=== PATIENT | female | born 1960 | race Caucasian/White ===

== ENCOUNTER 2019-04-26 14:31 | Inpatient (IN) | payer BC ==
[2019-04-26] MEDS ORDERED: SODIUM CHLORIDE 0.9% 2,000 ML IV ONE (14:52)
[2019-04-26] MEDS ORDERED: ASPIRIN 81 MG PO STA (14:52)
--- NOTE | 2019-04-26 15:00 | ED ---
General Adult HPI - General Chief complaint: Fever Stated complaint: JOSE,fever Time Seen by Provider: 04/26/19 14:47 Source: patient, family Mode of arrival: ambulatory Limitations: no limitations - History of Present Illness Initial comments: Patient is a 58-year-old homeless female who presents with a chief complaint of fever and cough. This been going on since Saturday. The patient cannot identify any inciting incident. She denies any sick contacts. She is accompanied to the emergency department by her who states that they have been staying at several different locations. The patient admits to cough that is productive of yellow sputum, she admits to exertional shortness of breath. She is a history of hypertension but denies any other medical history. The patient denies any aggravating or alleviating factors. She has not tried any medications, she has not sought medical treatment for this issue yet. - Related Data Home Medications Medication Instructions Recorded Confirmed Acetaminophen/Chlorpheniramine 2 tab PO Q46H PRN 04/26/19 04/26/19 [Coricidin Hbp Cold & Flu Tab] Carvedilol [Coreg] 3.125 mg PO BID 04/26/19 04/26/19 Allergies Allergy/AdvReac Type Severity Reaction Status Date / Time No Known Allergies Allergy Verified 04/26/19 14:44 Review of Systems ROS Statement: Those systems with pertinent positive or pertinent negative responses have been documented in the HPI. ROS Other: All systems not noted in ROS Statement are negative. Constitutional: Reports: fever Respiratory: Reports: cough, dyspnea Past Medical History Past Medical History: Hypertension History of Any Multi-Drug Resistant Organisms: None Reported Past Surgical History: No Surgical Hx Reported Past Psychological History: No Psychological Hx Reported Smoking Status: Current every day smoker Past Alcohol Use History: None Reported Past Drug Use History: None Reported General Exam Limitations: no limitations General appearance: alert, in no apparent distress Head exam: Present: atraumatic, normocephalic Eye exam: Present: normal appearance ENT exam: Present: normal exam Neck exam: Present: normal inspection Respiratory exam: Present: normal lung sounds bilaterally. Absent: respiratory distress, wheezes Cardiovascular Exam: Present: normal rhythm, tachycardia GI/Abdominal exam: Present: soft. Absent: distended, tenderness Rectal exam: Present: deferred Extremities exam: Present: normal inspection Back exam: Present: normal inspection Neurological exam: Present: alert, oriented X3 Psychiatric exam: Present: normal affect, normal mood Skin exam: Present: warm, dry, intact Course Vital Signs 04/26/19 04/26/19 04/26/19 14:42 14:52 15:59 Temperature 101.8 F H Pulse Rate 112 H Respiratory 20 20 20 Rate Blood Pressure 217/91 O2 Sat by Pulse 93 L Oximetry 04/26/19 04/26/19 16:00 17:00 Temperature 100.1 F H Pulse Rate 105 H 96 Respiratory 20 16 Rate Blood Pressure 189/108 O2 Sat by Pulse 97 Oximetry Medical Decision Making - Medical Decision Making Patient presents with a chief complaint of cough and shortness of breath. She is febrile on arrival, vital signs otherwise show tachycardia are stable. Patient is in no acute distress. Patient evaluated with basic labs including lactic acid, chest x-ray, and venous blood gas. Patient was given 2 L of IV fluid and aspirin. Laboratory evaluation of this patient shows an elevated white blood cell count with neutrophilia. Chest x-ray shows scarring versus pneumonia, given patient's clinical presentation favor pneumonia. Patient started on Rocephin and azithromycin for community-acquired pneumonia. Patient will be admitted for IV antibiotics given her borderline hypoxia, and meeting sepsis on arrival. We will hold on additional fluid boluses at this time as patient has already hypertensive. Patient and her are agreeable with the care plan. Case discussed with Dr. Dubon who accepts admission. - Lab Data Result diagrams: 04/26/19 15:31 04/26/19 15:31 Lab Results 04/26/19 04/26/19 04/26/19 Range/Units 15:31 15:31 15:31 WBC 17.0 H (3.8-10.6) k/uL RBC 4.63 (3.80-5.40) m/uL Hgb 13.8 (11.4-16.0) gm/dL Hct 42.2 (34.0-46.0) % MCV 91.3 (80.0-100.0) fL MCH 29.8 (25.0-35.0) pg MCHC 32.6 (31.0-37.0) g/dL RDW 12.9 (11.5-15.5) % Plt Count 273 (150-450) k/uL Neutrophils % 85 % Lymphocytes % 8 % Monocytes % 5 % Eosinophils % 1 % Basophils % 0 % Neutrophils # 14.5 H (1.3-7.7) k/uL Lymphocytes # 1.3 (1.0-4.8) k/uL Monocytes # 0.8 (0-1.0) k/uL Eosinophils # 0.2 (0-0.7) k/uL Basophils # 0.1 (0-0.2) k/uL VBG pH (7.31-7.41) VBG pCO2 (37-51) mmHg VBG HCO3 (24-28) mmol/L Sodium 137 (137-145) mmol/L Potassium 3.9 (3.5-5.1) mmol/L Chloride 102 (98-107) mmol/L Carbon Dioxide 25 (22-30) mmol/L Anion Gap 10 mmol/L BUN 17 (7-17) mg/dL Creatinine 0.74 (0.52-1.04) mg/dL Est GFR (CKD-EPI)AfAm >90 (>60 ml/min/1.73 sqM) Est GFR (CKD-EPI)NonAf >90 (>60 ml/min/1.73 sqM) Glucose 115 H (74-99) mg/dL Plasma Lactic Acid Grzegorz 1.2 (0.7-2.0) mmol/L Calcium 9.0 (8.4-10.2) mg/dL Troponin I (0.000-0.034) ng/mL NT-Pro-B Natriuret Pep pg/mL 04/26/19 04/26/19 04/26/19 Range/Units 15:31 15:31 15:45 WBC (3.8-10.6) k/uL RBC (3.80-5.40) m/uL Hgb (11.4-16.0) gm/dL Hct (34.0-46.0) % MCV (80.0-100.0) fL MCH (25.0-35.0) pg MCHC (31.0-37.0) g/dL RDW (11.5-15.5) % Plt Count (150-450) k/uL Neutrophils % % Lymphocytes % % Monocytes % % Eosinophils % % Basophils % % Neutrophils # (1.3-7.7) k/uL Lymphocytes # (1.0-4.8) k/uL Monocytes # (0-1.0) k/uL Eosinophils # (0-0.7) k/uL Basophils # (0-0.2) k/uL VBG pH 7.44 H (7.31-7.41) VBG pCO2 36 L (37-51) mmHg VBG HCO3 24 (24-28) mmol/L Sodium (137-145) mmol/L Potassium (3.5-5.1) mmol/L Chloride (98-107) mmol/L Carbon Dioxide (22-30) mmol/L Anion Gap mmol/L BUN (7-17) mg/dL Creatinine (0.52-1.04) mg/dL Est GFR (CKD-EPI)AfAm (>60 ml/min/1.73 sqM) Est GFR (CKD-EPI)NonAf (>60 ml/min/1.73 sqM) Glucose (74-99) mg/dL Plasma Lactic Acid Grzegorz (0.7-2.0) mmol/L Calcium (8.4-10.2) mg/dL Troponin I <0.012 (0.000-0.034) ng/mL NT-Pro-B Natriuret Pep 2500 pg/mL Disposition Clinical Impression: HCAP (healthcare-associated pneumonia), Hypoxia, Fever, Sepsis, Hypertension Disposition: ADMITTED IP TO THIS HOSP Condition: Fair Referrals: Boo Glover MD [Primary Care Provider] - 1-2 days Decision to Admit Reason: Admit from EC - Out of Hospital Transfer - Req. Specs Out of Hospital Transfer - Requested Specifics: Telemetry Unit
[2019-04-26 15:50] LABS: Basophils # (A) 0.1 k/uL (0-0.2); Basophils % (A) 0 %; Eosinophils # (A) 0.2 k/uL (0-0.7); Eosinophils % (A) 1 %; HCT 42.2 % (34.0-46.0); HGB 13.8 gm/dL (11.4-16.0); Lymphocytes # (A) 1.3 k/uL (1.0-4.8); Lymphocytes % (A) 8 %; MCH 29.8 pg (25.0-35.0); MCHC 32.6 g/dL (31.0-37.0); MCV 91.3 fL (80.0-100.0); Mean Platelet Volume 7.3; Monocytes # (A) 0.8 k/uL (0-1.0); Monocytes % (A) 5 %; Neutrophils # (A) 14.5 k/uL (1.3-7.7); Neutrophils % (A) 85 %; Platelet Count 273 k/uL (150-450); RBC 4.63 m/uL (3.80-5.40); RDW 12.9 % (11.5-15.5)
[2019-04-26] MEDS ORDERED: CARVEDILOL 3.125 MG TAB PO STA (15:53)
[2019-04-26 15:54] LABS: VBG PH 7.44 (7.31-7.41)
[2019-04-26 16:06] LABS: African American GFR (CKD) >90 (>60 ml/min/1.73 sqM); Anion Gap 10 mmol/L; Blood Urea Nitrogen 17 mg/dL (7-17); Carbon Dioxide 25 mmol/L (22-30); Chloride 102 mmol/L (98-107); Glucose 115 mg/dL (74-99); Potassium 3.9 mmol/L (3.5-5.1); Sodium 137 mmol/L (137-145)
--- NOTE | 2019-04-26 16:33 | XR ---
EXAMINATION TYPE: XR chest 2V DATE OF EXAM: 04/26/2019 COMPARISON: NONE HISTORY: Cough and fever TECHNIQUE: Frontal and lateral views of the chest are obtained. FINDINGS: Heart and mediastinum are normal. There is mild interstitial density right upper lobe. The re is no heart failure. There is no pleural effusion. There is osteopenia and slight anterior wedging of mid thoracic vertebra. There is minimal pleural thickening and pulmonary density at the right maría elena g apex. IMPRESSION: Mild scarring right upper lobe. Normal heart. Acute pneumonia not entirely excluded.
[2019-04-26] MEDS ORDERED: AZITHROMYCIN 500 MG in SODIUM CHLORIDE 0.9% 250 ML IVPB STA (16:39)
[2019-04-26] MEDS ORDERED: diphenhydrAMINE 50 MG CAP PO PRN (17:35)
[2019-04-26] MEDS ORDERED: HYDROcodone/APAP 5-325MG 1 EACH TAB PO PRN (17:36)
[2019-04-26] MEDS ORDERED: ALPRAZolam 0.25 MG TAB PO PRN (17:36)
[2019-04-26] MEDS ORDERED: HYDROmorphone 0.5 MG/0.5 ML SYRINGE IVP PRN (17:36)
[2019-04-26] MEDS ORDERED: ACETAMINOPHEN TAB 500 MG TAB PO PRN (17:36)
[2019-04-26 18:04] LABS: Amorphous Sediment,Urine Rare /hpf; Appearance,Urine Clear (Clear); Bilirubin,Urine Negative (Negative); Blood,Urine Moderate (Negative); Color,Urine Yellow; Glucose,Urine (UA) Negative (Negative); Hyaline Casts,Urine 1 /lpf (0-2); Ketones,Urine 2+ (Negative); Leukocyte Esterase,Urine Trace (Negative); Mucus,Urine Rare /hpf; Nitrite,Urine Negative (Negative); Protein,Urine 1+ (Negative); RBC,Urine 7 /hpf (0-5); Specific Gravity,Urine 1.018 (1.001-1.035); Squamous Epithelial Cell,Urine 5 /hpf (0-4); Urobilinogen,Urine <2.0 mg/dL (<2.0); WBC,Urine 3 /hpf (0-5)
[2019-04-26] MEDS: hydrALAZINE HCL 20 MG/ML 1 ML VIAL IVP PRN (18:23)
[2019-04-26] MEDS ORDERED: IPRATROPIUM-ALBUTEROL 3 ML NEB INHALATION SCH (20:00)
[2019-04-26] MEDS: SYMBICORT 160-4.5 MCG INHALER INHALATION SCH (20:05)
[2019-04-26] MEDS ORDERED: hydrALAZINE HCL 20 MG/ML 1 ML VIAL IVP PRN (20:30)
[2019-04-26] MEDS ORDERED: cloNIDine HCL 0.1 MG TAB PO PRN (20:30)
[2019-04-26] MEDS: cloNIDine HCL 0.1 MG TAB PO SCH (20:49)
[2019-04-26] MEDS: CARVEDILOL 3.125 MG TAB PO SCH (20:49)
[2019-04-26] MEDS: methylPREDNISolone SOD SUCCI 125 MG/2 ML VIAL IV SCH (20:51)
[2019-04-26] MEDS: NICOTINE 14MG/24HR PATCH TRANSDERM SCH (21:00)
[2019-04-26] MEDS: INSULIN ASPART (NovoLOG) 100 UNIT/ML VIAL SQ SCH (21:08)
[2019-04-26 21:09] LABS: Glucose,Whole Blood 104 mg/dL (75-99)
[2019-04-26] MEDS ORDERED: IPRATROPIUM-ALBUTEROL 3 ML NEB INHALATION PRN (21:42)
--- NOTE | 2019-04-26 22:02 | HP ---
HISTORY AND PHYSICAL DATE OF SERVICE: 04/26/2019 CHIEF COMPLAINT: Shortness of breath and cough. HISTORY OF PRESENT ILLNESS: This 58-year-old woman with a past medical history of multiple medical problems including history of hypertension, history of smoking being followed Dr. Tony Glover in the outpatient setting apparently homeless at this time. The patient complained of shortness of breath, cough, sputum for the last several days. Patient came to [facility] and was admitted for further evaluation and treatment. The white count is elevated to 17. Pneumonia, right lower pneumonia suspected. PAST MEDICAL HISTORY: History of hypertension, history of nicotine dependence. MEDICATIONS: Prior to admission include: 1. Coreg 3.125 mg p.o. b.i.d. ALLERGIES: None. FAMILY HISTORY: No history of any heart disease or strokes in family. SOCIAL HISTORY: History of smoking on ongoing basis. REVIEW OF SYSTEMS: ENT: No diminished vision. No diminished hearing. CARDIOVASCULAR system: As mentioned earlier. RESPIRATIONS: As mentioned earlier. GI no nausea or vomiting. no dysuria or hematuria. CENTRAL NERVOUS SYSTEM: No numbness or weakness. ALLERGY/IMMUNOLOGY: No asthma or hayfever. MUSCULOSKELETAL: As mentioned earlier. HEMATOLOGY/ONCOLOGY: No history of anemia. ENDOCRINE: No history of diabetes or hypothyroidism. CONSTITUTIONAL: As mentioned earlier. DERMATOLOGY: Negative. RHEUMATOLOGY: Negative. PSYCHIATRY: As mentioned earlier. PHYSICAL EXAMINATION: Alert and oriented x3. Pulse is 96, blood pressure 198/101, respirations 16, temperature 100.1, pulse ox 98% on room air. HEENT: Conjunctivae normal. NECK: No jugular venous distention. CARDIOVASCULAR: S1, S2 muffled. RESPIRATORY: Breath sounds diminished in the bases. Bilateral scattered rhonchi and crackles, right more than on the left. ABDOMEN: Soft, nontender. No mass palpable. LEGS: No edema. No swelling. NERVOUS SYSTEM: Higher functions as mentioned earlier. Moves all four limbs. No focal motor deficits. LYMPHATICS: No lymph nodes palpable in the neck, axillae or groin. SKIN: No ulcers, no rashes and no bleeding. JOINTS: No active deforming arthropathy. LABS: At this time shows WBC 17, hemoglobin 13.8. ABGs noted. ASSESSMENT: 1. Chronic obstructive pulmonary disease acute exacerbation with acute purulent tracheobronchitis as well as right lung bronchopneumonia with fever, increased WBC. 2. History of continued ongoing nicotine dependence. 3. Hypertension. RECOMMENDATIONS AND DISCUSSION: In this 58-year-old woman who presented with multiple medical problems, we will monitor the patient closely, continue the current medications, management and symptomatic treatment. We will initiate the empiric antibiotics and bronchodilators, steroids. Smoking cessation has been advised. Prognosis guarded because of multiple complex medical issues. Further recommendations to follow. A copy of dictation being forwarded to Tony Glover who is the primary care physician. MMNAVYA / MICHELLEN: [id number] / MTDCarlos
[2019-04-27] MEDS: methylPREDNISolone SOD SUCCI 125 MG/2 ML VIAL IV SCH ×5 (00:04→23:26)
[2019-04-27 06:44] LABS: Glucose,Whole Blood 136 mg/dL (75-99)
[2019-04-27] MEDS: INSULIN ASPART (NovoLOG) 100 UNIT/ML VIAL SQ SCH ×4 (07:22→20:35)
[2019-04-27] MEDS: PANTOPRAZOLE 40 MG TABLET PO SCH (07:22)
[2019-04-27] MEDS: MULTIVITAMINS, THERA 1 EACH TAB PO SCH (07:46)
[2019-04-27] MEDS: cloNIDine HCL 0.1 MG TAB PO SCH ×3 (07:46→20:39)
[2019-04-27] MEDS: CARVEDILOL 3.125 MG TAB PO SCH ×2 (07:46→20:35)
[2019-04-27] MEDS: NICOTINE 14MG/24HR PATCH TRANSDERM SCH (07:47)
[2019-04-27] MEDS: SYMBICORT 160-4.5 MCG INHALER INHALATION SCH ×2 (09:07→20:43)
[2019-04-27] MEDS: IPRATROPIUM-ALBUTEROL 3 ML NEB INHALATION SCH ×3 (09:07→20:43)
[2019-04-27 11:21] LABS: Glucose,Whole Blood 151 mg/dL (75-99)
[2019-04-27] MEDS: AZITHROMYCIN 500 MG TAB PO SCH (12:19)
[2019-04-27 12:58] LABS: Basophils % (A) 0 %; Eosinophils % (A) 0 %; HCT 38.2 % (34.0-46.0); HGB 12.3 gm/dL (11.4-16.0); Lymphocytes # (A) 0.9 k/uL (1.0-4.8); Lymphocytes % (A) 7 %; MCH 29.6 pg (25.0-35.0); MCHC 32.2 g/dL (31.0-37.0); Mean Platelet Volume 7.8; Monocytes # (A) 0.2 k/uL (0-1.0); Monocytes % (A) 1 %; Neutrophils # (A) 11.4 k/uL (1.3-7.7); Neutrophils % (A) 91 %; Platelet Count 274 k/uL (150-450); RBC 4.15 m/uL (3.80-5.40); RDW 13.4 % (11.5-15.5); WBC 12.5 k/uL (3.8-10.6)
[2019-04-27 13:26] LABS: African American GFR (CKD) >90 (>60 ml/min/1.73 sqM); Anion Gap 8 mmol/L; Blood Urea Nitrogen 19 mg/dL (7-17); Calcium 8.5 mg/dL (8.4-10.2); Carbon Dioxide 24 mmol/L (22-30); Chloride 107 mmol/L (98-107); Glucose 133 mg/dL (74-99); Potassium 4.1 mmol/L (3.5-5.1); Sodium 139 mmol/L (137-145)
--- NOTE | 2019-04-27 15:56 | P.CNPUL ---
History of Present Illness Consult date: 04/27/19 Requesting physician: Seth Dubon Reason for consult: dyspnea, cough Chief complaint: Dyspnea, cough, fever History of present illness: This is a 58-year-old female patient of Dr. Boo Glover with past medical history of chronic and ongoing nicotine dependence, patient carries 35 years of smoking, less than a pack a day, hypertension. Patient presents with 2 day history of increased shortness of breath, cough, ingestion, phlegm production, and fever. Denies any sick contacts, she thought her shortness of breath with was initially exacerbated by hot humid weather. Her dyspnea became worse, and she developed a fever, she is producing some yellow sputum. Does not follow with a lung specialist on a regular basis, she is not on any inhalers at home, oxygen, chest x-ray was completed showing mild scarring in the right upper lobe, there is possibility of tracheobronchitis and bronchopneumonia. On admission white blood cell count was 17.0, hemoglobin was 13.8, electrolytes and profile were within normal limits, troponins negative 3, proBNP was 2500, urinalysis showed 2+ ketones, 1+ protein, trace leuk trase, WBCs were 3, RBCs was 7, no clear evidence of infection. Patient is quite wheezy, but she is on room air, with a pulse ox of 92%, denies any acute distress, she has been started on empiric antibiotics in the form of azithromycin and Rocephin, IV steroids, nebulized bronchodilators. Review of Systems All systems: negative Constitutional: Denies chills, Denies fever Eyes: denies blurred vision, denies pain Ears, nose, mouth and throat: Denies headache, Denies sore throat Cardiovascular: Denies chest pain, Denies shortness of breath Respiratory: Reports cough with sputum, Reports dyspnea, Reports respiratory infections, Denies cough Gastrointestinal: Denies abdominal pain, Denies diarrhea, Denies nausea, Denies vomiting Genitourinary: Denies dysuria, Denies hematuria Musculoskeletal: Denies myalgias Integumentary: Denies pruritus, Denies rash Neurological: Denies numbness, Denies weakness Psychiatric: Denies anxiety, Denies depression Endocrine: Denies fatigue, Denies weight change Past Medical History Past Medical History: Hypertension Additional Past Medical History / Comment(s): Pneumonia History of Any Multi-Drug Resistant Organisms: None Reported Past Surgical History: No Surgical Hx Reported Past Anesthesia/Blood Transfusion Reactions: No Reported Reaction Past Psychological History: No Psychological Hx Reported Smoking Status: Current every day smoker Past Alcohol Use History: None Reported Past Drug Use History: None Reported - Past Family History Mother Family Medical History: No Reported History Medications and Allergies Home Medications Medication Instructions Recorded Confirmed Type Acetaminophen/Chlorpheniramine 2 tab PO Q46H PRN 04/26/19 04/26/19 History [Coricidin Hbp Cold & Flu Tab] Carvedilol [Coreg] 3.125 mg PO BID 04/26/19 04/26/19 History Allergies Allergy/AdvReac Type Severity Reaction Status Date / Time No Known Allergies Allergy Verified 04/26/19 14:44 Physical Exam Vitals: Vital Signs Temp Pulse Pulse Resp BP BP Pulse Ox 04/27/19 14:39 98.4 F 93 16 150/73 92 L 04/27/19 13:50 74 04/27/19 13:38 74 04/27/19 10:30 76 149/77 04/27/19 09:19 76 04/27/19 09:07 75 98 04/27/19 07:35 16 04/27/19 07:00 98.4 F 84 16 188/93 97 04/27/19 04:35 18 04/27/19 02:24 98.3 F 80 17 146/76 97 04/27/19 00:30 20 04/26/19 21:22 99.5 F 119 H 20 120/76 98 04/26/19 21:16 94 24 171/83 97 04/26/19 20:22 98 04/26/19 20:21 106 H 04/26/19 20:20 28 H 04/26/19 20:17 116 H 20 232/100 99 04/26/19 20:08 98.6 F 111 H 18 229/107 97 04/26/19 20:06 106 H 04/26/19 18:56 102 H 18 201/72 98 04/26/19 18:31 100.0 F H 98 16 212/92 97 04/26/19 17:00 100.1 F H 96 16 189/108 97 04/26/19 16:00 105 H 20 04/26/19 15:59 20 Intake and Output 04/27/19 04/27/19 04/27/19 06:59 14:59 22:59 Intake Total 1090 Balance 1090 Intake: Intake, IV Titration 50 Amount cefTRIAXone 1 gm In 50 Sodium Chloride 0.9% 50 ml @ 100 mls/hr IVPB Q24HR [facility] Rx#:[id number] Oral 1040 Other: Voiding Method Toilet # Voids 2 GENERAL EXAM: Alert, pleasant, 58-year-old female, speaks poor Danish, comfortable in no apparent distress. HEAD: Normocephalic/atraumatic. EYES: Normal reaction of pupils, equal size. Conjunctiva pink, sclera white. NOSE: Clear with pink turbinates. THROAT: No erythema or exudates. NECK: No masses, no JVD, no thyroid enlargement, no adenopathy. CHEST: No chest wall deformity. Symmetrical expansion. LUNGS: Equal air entry with diffuse wheezes CVS: Regular rate and rhythm, normal S1 and S2, no gallops, no murmurs, no rubs ABDOMEN: Soft, nontender. No hepatosplenomegaly, normal bowel sounds, no guarding or rigidity. EXTREMITIES: No clubbing, no edema, no cyanosis, 2+ pulses and upper and lower extremities. MUSCULOSKELETAL: Muscle strength and tone normal. SPINE: No scoliosis or deformity SKIN: No rashes CENTRAL NERVOUS SYSTEM: Alert and oriented -3. No focal deficits, tone is normal in all 4 extremities. PSYCHIATRIC: Alert and oriented -3. Appropriate affect. Intact judgment and insight. Results - Laboratory Findings CBC and BMP: 04/27/19 11:50 04/27/19 11:50 Abnormal lab findings: Abnormal Labs 04/26/19 04/26/19 04/26/19 15:31 15:31 15:45 WBC 17.0 H Neutrophils # 14.5 H Lymphocytes # VBG pH 7.44 H VBG pCO2 36 L BUN Glucose 115 H POC Glucose (mg/dL) Urine Protein Urine Ketones Urine Blood Ur Leukocyte Esterase Urine RBC Ur Squamous Epith Cells Amorphous Sediment Urine Mucus 04/26/19 04/26/19 04/27/19 17:49 21:05 06:43 WBC Neutrophils # Lymphocytes # VBG pH VBG pCO2 BUN Glucose POC Glucose (mg/dL) 104 H 136 H Urine Protein 1+ H Urine Ketones 2+ H Urine Blood Moderate H Ur Leukocyte Esterase Trace H Urine RBC 7 H Ur Squamous Epith Cells 5 H Amorphous Sediment Rare H Urine Mucus Rare H 04/27/19 04/27/19 04/27/19 11:20 11:50 11:50 WBC 12.5 H Neutrophils # 11.4 H Lymphocytes # 0.9 L VBG pH VBG pCO2 BUN 19 H Glucose 133 H POC Glucose (mg/dL) 151 H Urine Protein Urine Ketones Urine Blood Ur Leukocyte Esterase Urine RBC Ur Squamous Epith Cells Amorphous Sediment Urine Mucus - Diagnostic Findings Chest x-ray: report reviewed, image reviewed Assessment and Plan Plan: Assessment: #1. Dyspnea, related to acute exacerbation of COPD with tracheobronchitis, and possibility of bronchopneumonia is not entirely excluded, although chest x-ray did not show any clearcut evidence of pneumonia. #2. Chronic and ongoing nicotine dependence, patient carries 35 smoking, less than a pack a day #3. Hypertension #4. Elevated proBNP suggesting acute or chronic congestive heart failure, clinically patient does not look fluid overloaded #5. Previous episode of pneumonia #6. Homelessness Plan: Continue same antibiotic coverage, collect a sputum culture, continue IV steroids, nebulized bronchodilators. No complaints of chest pain, today's labs were noted, proBNP was elevated at 2500, suggesting congestive heart failure, need to consider echocardiogram. We'll continue to follow. I performed a history & physical examination of the patient and discussed their management with my nurse practitioner, Caprice Romero. I reviewed the nurse practitioner's note and agree with the documented findings and plan of care. Lung sounds are positive for diffuse wheezes throughout the lung alejandra. The findings and the impression was discussed with the patient. I attest to the documentation by the nurse practitioner. Time with Patient: Greater than 30
--- NOTE | 2019-04-27 16:03 | PN ---
PROGRESS NOTE DATE OF SERVICE: 04/27/2019 This 58-year-old woman was admitted with significant shortness of breath, possibly exacerbation. Patient also had features of sepsis. The patient was also suspected to have pneumonia. The patient is being closely monitored at this time. The patient also had IV bolus fluid. Lactic acid was 1.2. The patient also had elevated blood pressure last night. Past medical history reviewed. REVIEW OF SYSTEMS: CARDIOVASCULAR SYSTEM: No angina, palpitations. RESPIRATORY SYSTEM: As mentioned earlier. GI: As mentioned earlier. : No dysuria or retention. NERVOUS SYSTEM: No numbness, weakness. MEDICATIONS: Reviewed. They include: 1. Tylenol 500 mg q.6 p.r.n. 2. [place] 5 mg q.6 p.r.n. 3. DuoNeb q.i.d. and p.r.n. 4. Xanax 0.25 t.i.d. 5. Zithromax 500 mg daily. 6. Symbicort 160/4.5 two puffs b.i.d. 7. Coreg 3.125 mg b.i.d. 8. Rocephin 1 gram IV daily. 9. Catapres 0.1 q.4 p.r.n. 10.Apresoline p.r.n. 11.Dilaudid. 12.Solu-Medrol 60 IV q.6. 13.Habitrol 14. 14.Protonix. PHYSICAL EXAMINATION: Patient alert and oriented x3. Pulse 76, blood pressure 149/76, respiration 10, temperature normal, pulse ox 98% on 2 L. HEENT: Conjunctivae normal. NECK: No jugular venous distention. CARDIOVASCULAR SYSTEM: S1, S2 muffled. RESPIRATORY SYSTEM: Breath sounds diminished at the bases. A few scattered rhonchi and crackles. LEGS: No edema. No swelling. NERVOUS SYSTEM: Mild diffuse weakness. SKIN: No ulcer, rash, bleeding. LABS: WBC 12.5. Hemoglobin 12.3. Accu-Cheks are noted. UA noted. ASSESSMENT: 1. Chronic obstructive pulmonary disease, acute exacerbation, with acute purulent tracheobronchitis and right lung bronchopneumonia with possible sepsis, present on admission. 2. Elevated white count. 3. History and ongoing nicotine dependence. 4. Hypertension with hypertensive urgency. 5. Elevated random blood sugar. 6. Increased white count. 7. History of pneumonia. 8. History of nicotine dependence. 9. FULL CODE. RECOMMENDATIONS AND DISCUSSION: In this 58-year-old woman who presented with multiple complex medical issues, we will monitor the patient closely, continue the current medications, continue symptomatic treatment. Otherwise, at this time I recommend continuing with antibiotics, bronchodilators, steroids. Monitor blood sugars closely. Close follow with Dr. Lobo and Cardiology. Further recommendations to follow. Troponins are less than 0.012 and 0.016. MMODL / IJN: [id number] / MADALYN
[2019-04-27 16:57] LABS: Glucose,Whole Blood 222 mg/dL (75-99)
[2019-04-27 20:00] LABS: Glucose,Whole Blood 197 mg/dL (75-99)
--- NOTE | 2019-04-27 23:42 | CONS ---
CONSULTATION Mrs. Vargas is a 58-year-old female with a history of smoking and hypertension who was admitted to the hospital with increasing shortness of breath, cough, congestion and fever. The patient denied any chest pain. The patient has been having yellowish sputum production. Finally the patient came to the emergency room. Her white count on admission was 17,000. The patient is being treated for possible pneumonia. She is on steroids along with azithromycin and Rocephin. We were asked to see the patient because of her uncontrolled blood pressure. Her troponins have been negative. ProBNP is about 2500. Her EKG showed a sinus tachycardia with evidence of right atrial enlargement and minimal voltage criteria for LVH. Chest x-ray is reported as showing mild scarring of the right upper lobe, normal heart size. Acute pneumonia is not excluded. Her blood pressure on admission was in the range of 188/93, 170/83, and it has been fluctuating. Also there were readings in the beginning of 229/107. Currently the patient is on: 1. Coreg 3.125 mg p.o. b.i.d. 2. Catapres 0.1 mg q.4 hours p.r.n. for hypertension. 3. Catapres 0.1 mg p.o. t.i.d. 4. Hydralazine p.r.n. Her lab work showed normal electrolytes and normal creatinine. The patient was only on Coreg at home. Will start her on a combination of AISSATOU inhibitor and also calcium channel blockers. Further recommendations will depend upon her clinical course. We will also get an echocardiogram to assess LV function. Her past medical history is significant for hypertension. No history of previous myocardial infarction or strokes. The patient has history of chronic smoking. Her medication prior to admission included Coreg and cold medication. ALLERGIES: NIL KNOWN. PERSONAL HISTORY: Smoker. Not alcoholic. PHYSICAL EXAMINATION: Physical examination at this time reveals a 58-year-old female who is alert and oriented. She does not appear to be in acute distress. Her blood pressure is much controlled since admission here. Last blood pressure was 128/70, pulse 78. Pupils are equal. No anemia or jaundice. Neck is supple. HEART: S1 and S2 heard. Lungs appear to be clear. Abdomen is soft. EXTREMITIES: No significant edema. FINAL IMPRESSION: 1. Acute pneumonia versus bronchitis. The patient seems to be feeling better. 2. Uncontrolled hypertension. 3. High BNP. PLAN: Will get an echocardiogram to assess LV function. We may start her on an AISSATOU inhibitor and may cut back the dose of the Catapres as tolerated. Further recommendation will depend upon the clinical course. EDDIE / GUTIERREZ: [id number] /
[2019-04-28] MEDS: methylPREDNISolone SOD SUCCI 125 MG/2 ML VIAL IV SCH (04:59)
[2019-04-28 07:16] LABS: Glucose,Whole Blood 146 mg/dL (75-99)
[2019-04-28] MEDS: INSULIN ASPART (NovoLOG) 100 UNIT/ML VIAL SQ SCH ×4 (07:47→21:17)
[2019-04-28] MEDS ORDERED: amLODIPine 5 MG TAB PO STA (07:49)
[2019-04-28] MEDS: IPRATROPIUM-ALBUTEROL 3 ML NEB INHALATION SCH ×3 (08:55→19:54)
[2019-04-28] MEDS: SYMBICORT 160-4.5 MCG INHALER INHALATION SCH ×2 (08:55→19:54)
[2019-04-28] MEDS: CARVEDILOL 3.125 MG TAB PO SCH ×2 (09:14→21:49)
[2019-04-28] MEDS: PANTOPRAZOLE 40 MG TABLET PO SCH (09:16)
[2019-04-28] MEDS: NICOTINE 14MG/24HR PATCH TRANSDERM SCH (09:16)
[2019-04-28] MEDS: AZITHROMYCIN 500 MG TAB PO SCH (09:16)
[2019-04-28] MEDS: cloNIDine HCL 0.1 MG TAB PO SCH ×2 (09:20→21:51)
[2019-04-28] MEDS: LISINOPRIL-HCTZ 10-12.5 MG 1 EACH TAB PO SCH (09:29)
[2019-04-28 09:37] LABS: Basophils % (A) 0 %; Eosinophils # (A) 0.1 k/uL (0-0.7); Eosinophils % (A) 0 %; HCT 41.4 % (34.0-46.0); HGB 13.2 gm/dL (11.4-16.0); Hypochromasia Slight; Lymphocytes % (A) 4 %; MCH 29.6 pg (25.0-35.0); MCHC 31.8 g/dL (31.0-37.0); MCV 93.2 fL (80.0-100.0); Mean Platelet Volume 7.9; Monocytes # (A) 0.3 k/uL (0-1.0); Monocytes % (A) 1 %; Neutrophils # (A) 20.9 k/uL (1.3-7.7); Neutrophils % (A) 94 %; Platelet Count 313 k/uL (150-450); RBC 4.44 m/uL (3.80-5.40); RDW 13.5 % (11.5-15.5); WBC 22.3 k/uL (3.8-10.6)
[2019-04-28 09:57] LABS: Calcium 9.2 mg/dL (8.4-10.2); Potassium 4.6 mmol/L (3.5-5.1)
[2019-04-28 11:38] LABS: Glucose,Whole Blood 136 mg/dL (75-99)
--- NOTE | 2019-04-28 12:11 | P.PN ---
Subjective Progress Note Date: 04/28/19 This 58-year-old female is admitted mainly with pneumonitis. She is also having problems with blood pressure. Patient was given Norvasc and start on lisinopril, hydrochlorothiazide. She is also on a Catapres still complaining of some shortness of breath. Denies any chest pain. Overall patient seemed to be clinically stable. We'll continue current medical therapy and continue monitoring blood pressures Objective - Vital Signs Vital signs: Vital Signs Temp 97.9 F 04/28/19 07:29 Pulse 76 04/28/19 09:08 Resp 28 H 04/28/19 07:29 BP 154/105 04/28/19 07:29 Pulse Ox 93 L 04/28/19 07:29 Intake & Output 04/27/19 04/28/19 04/28/19 18:59 06:59 18:59 Intake Total 1740 240 Balance 1740 240 Intake: Intake, IV Titration 50 Amount cefTRIAXone 1 gm In 50 Sodium Chloride 0.9% 50 ml @ 100 mls/hr IVPB Q24HR [facility] Rx#:[id number] Oral 1690 240 Other: Voiding Method Toilet Toilet Toilet # Voids 0 - Exam GENERAL EXAM: Patient is alert and oriented and doesn't appear to be in any acute distress HEENT: Normocephalic. Normal reaction of pupils, equal size, normal range of extraocular motion. No erythema or exudates in the throat. NECK: No masses, no nuchal rigidity. CHEST: No chest wall deformity. LUNGS: Equal air entry with no crackles or wheeze. HEART: S1 and S2 normal with no audible mumurs or gallops. Regular rhythm, femorals equal on both sides.. ABDOMEN: No hepatosplenomegaly, normal bowel sounds, no guarding or rigidity. SKIN: No rashes CENTRAL NERVOUS SYSTEM: No focal deficits. EXTREMITIES: No cyanosis, clubbing or edema. - Labs CBC & Chem 7: 04/28/19 09:18 04/28/19 09:18 Labs: Abnormal Lab Results - Last 24 Hours (Table) 04/27/19 04/27/19 04/27/19 Range/Units 11:50 11:50 16:56 WBC 12.5 H (3.8-10.6) k/uL Neutrophils # 11.4 H (1.3-7.7) k/uL Lymphocytes # 0.9 L (1.0-4.8) k/uL Carbon Dioxide (22-30) mmol/L BUN 19 H (7-17) mg/dL Glucose 133 H (74-99) mg/dL POC Glucose (mg/dL) 222 H (75-99) mg/dL 04/27/19 04/28/19 04/28/19 Range/Units 19:57 07:15 09:18 WBC 22.3 H (3.8-10.6) k/uL Neutrophils # 20.9 H (1.3-7.7) k/uL Lymphocytes # (1.0-4.8) k/uL Carbon Dioxide (22-30) mmol/L BUN (7-17) mg/dL Glucose (74-99) mg/dL POC Glucose (mg/dL) 197 H 146 H (75-99) mg/dL 04/28/19 04/28/19 Range/Units 09:18 11:36 WBC (3.8-10.6) k/uL Neutrophils # (1.3-7.7) k/uL Lymphocytes # (1.0-4.8) k/uL Carbon Dioxide 21 L (22-30) mmol/L BUN 28 H (7-17) mg/dL Glucose 179 H (74-99) mg/dL POC Glucose (mg/dL) 136 H (75-99) mg/dL Assessment and Plan (1) HCAP (healthcare-associated pneumonia) Current Visit: Yes Status: Acute Code(s): J18.9 - PNEUMONIA, UNSPECIFIED ORGANISM SNOMED Code(s): 147751740 (2) Hypertension Current Visit: Yes Status: Acute Code(s): I10 - ESSENTIAL (PRIMARY) HYPERTENSION SNOMED Code(s): 54128915 Plan: Patient is started on lisinopril/hydrochlorothiazide. Patient was also given Norvasc today. We'll continue to monitor her blood pressure. Clinically she seemed to be improving
[2019-04-28] MEDS: MULTIVITAMINS, THERA 1 EACH TAB PO SCH (13:13)
--- NOTE | 2019-04-28 13:40 | P.PN ---
Subjective Progress Note Date: 04/28/19 Principal diagnosis: Dyspnea, cough, fever This is a 58-year-old female patient of Dr. Boo Glover with past medical history of chronic and ongoing nicotine dependence, patient carries 35 years of smoking, less than a pack a day, hypertension. Patient presents with 2 day his tory of increased shortness of breath, cough, ingestion, phlegm production, and fever. Denies any sick contacts, she thought her shortness of breath with was initially exacerbated by hot humid weather. Her dyspnea became worse, and she developed a fever, she is producing some yellow sputum. Does not follow with a lung specialist on a regular basis, she is not on any inhalers at home, oxygen, chest x-ray was completed showing mild scarring in the right upper lobe, there is possibility of tracheobronchitis and bronchopneumonia. On admission white blood cell count was 17.0, hemoglobin was 13.8, electrolytes and profile were within normal limits, troponins negative 3, proBNP was 2500, urinalysis showed 2+ ketones, 1+ protein, trace leuk trase, WBCs were 3, RBCs was 7, no clear evidence of infection. Patient is quite wheezy, but she is on room air, with a pulse ox of 92%, denies any acute distress, she has been started on empiric antibiotics in the form of azithromycin and Rocephin, IV steroids, nebulized bronchodilators. On 04/28/2019 patient seen in follow-up on medical surgical floor. She is resting comfortably in bed, she states her breathing is improving, on today's exam her lung sounds are less bronchospastic, there is some limited crackles at bilateral bases, no significant wheezing. no chest pain, no significant cough or congestion, patient remains on empiric antibiotics in the form of azithromycin and Rocephin, IV steroids, and nebulized bronchodilators. Room air pulse ox is 93%, his labs have been reviewed showing white blood cell count is 22.3, hemoglobin is 13.2, sodium is 140, potassium is 4.6, chloride is 107, CO2 is 21, B1 is 28, creatinine was 0.92. Objective - Vital Signs Vital signs: Vital Signs Temp 97.9 F 04/28/19 07:29 Pulse 76 04/28/19 13:11 Resp 28 H 04/28/19 07:29 BP 154/105 04/28/19 07:29 Pulse Ox 93 L 04/28/19 07:29 Intake & Output 04/27/19 04/28/19 04/28/19 18:59 06:59 18:59 Intake Total 1740 240 Balance 1740 240 Intake: Intake, IV Titration 50 Amount cefTRIAXone 1 gm In 50 Sodium Chloride 0.9% 50 ml @ 100 mls/hr IVPB Q24HR [facility] Rx#:[id number] Oral 1690 240 Other: Voiding Method Toilet Toilet Toilet # Voids 0 2 - Exam GENERAL EXAM: Alert, pleasant, 58-year-old female, speaks poor Czech, comfortable in no apparent distress. HEAD: Normocephalic/atraumatic. EYES: Normal reaction of pupils, equal size. Conjunctiva pink, sclera white. NOSE: Clear with pink turbinates. THROAT: No erythema or exudates. NECK: No masses, no JVD, no thyroid enlargement, no adenopathy. CHEST: No chest wall deformity. Symmetrical expansion. LUNGS: Equal air entry with no crackles, no significant wheezes or rhonchi CVS: Regular rate and rhythm, normal S1 and S2, no gallops, no murmurs, no rubs ABDOMEN: Soft, nontender. No hepatosplenomegaly, normal bowel sounds, no guarding or rigidity. EXTREMITIES: No clubbing, no edema, no cyanosis, 2+ pulses and upper and lower extremities. MUSCULOSKELETAL: Muscle strength and tone normal. SPINE: No scoliosis or deformity SKIN: No rashes CENTRAL NERVOUS SYSTEM: Alert and oriented -3. No focal deficits, tone is normal in all 4 extremities. PSYCHIATRIC: Alert and oriented -3. Appropriate affect. Intact judgment and insight. - Labs CBC & Chem 7: 04/28/19 09:18 04/28/19 09:18 Labs: Abnormal Lab Results - Last 24 Hours (Table) 04/27/19 04/27/19 04/28/19 Range/Units 16:56 19:57 07:15 WBC (3.8-10.6) k/uL Neutrophils # (1.3-7.7) k/uL Carbon Dioxide (22-30) mmol/L BUN (7-17) mg/dL Glucose (74-99) mg/dL POC Glucose (mg/dL) 222 H 197 H 146 H (75-99) mg/dL 04/28/19 04/28/19 04/28/19 Range/Units 09:18 09:18 11:36 WBC 22.3 H (3.8-10.6) k/uL Neutrophils # 20.9 H (1.3-7.7) k/uL Carbon Dioxide 21 L (22-30) mmol/L BUN 28 H (7-17) mg/dL Glucose 179 H (74-99) mg/dL POC Glucose (mg/dL) 136 H (75-99) mg/dL Assessment and Plan Plan: Assessment: #1. Dyspnea, related to acute exacerbation of COPD with tracheobronchitis, and possibility of bronchopneumonia is not entirely excluded, although chest x-ray did not show any clearcut evidence of pneumonia. #2. Chronic and ongoing nicotine dependence, patient carries 35 smoking, less than a pack a day #3. Hypertension #4. Elevated proBNP suggesting acute or chronic congestive heart failure, clinically patient does not look fluid overloaded #5. Previous episode of pneumonia #6. Homelessness Plan: Continue current antibiotics, we'll decrease the IV Solu-Medrol to 40 mg every 8 hours, patient is hypertensive, less bronchospastic on today's exam, denies any chest pain, denies any shortness of breath, cough or congestion. We'll obtain follow-up chest x-ray tomorrow. I performed a history & physical examination of the patient and discussed their management with my nurse practitioner, Caprice Romero. I reviewed the nurse practitioner's note and agree with the documented findings and plan of care. Lung sounds are positive for diffuse wheezes throughout the lung alejandra. The findings and the impression was discussed with the patient. I attest to the documentation by the nurse practitioner. Time with Patient: Less than 30
[2019-04-28] MEDS: methylPREDNISolone SOD SUCCI 40 MG/ML 1 ML VIAL IV SCH ×2 (15:26→23:31)
[2019-04-28 16:21] LABS: Glucose,Whole Blood 118 mg/dL (75-99)
[2019-04-28 20:13] LABS: Glucose,Whole Blood 128 mg/dL (75-99)
--- NOTE | 2019-04-29 00:24 | P.PN ---
Subjective Progress Note Date: 04/28/19 Principal diagnosis: Tracheobronchitis and possible pneumonia Hypertensive urgency Patient is a 58-year-old female with a known history of chronic ongoing nicotine addiction, hypertension came to ER with complaints of worsening shortness of breath, congestion and sputum production and fever for the past 2 days prior to admission.. Chest x-ray showed mild right upper lobe scarring. Acute pneumonia is not completely excluded. WBC 17.0. Troponin 3 negative proBNP 2500 on admission. Currently being treated for possible pneumonia and unlikely CHF exacerbation. Blood pressure is uncontrolled with SBP greater than 220 mm hg,. 04/28/2019 Patient says that she feels better today. No complaints of chest pain. No worsening shortness of breath. Still having some expiratory wheezing. No nausea vomiting or abdominal pain. Patient is being continued on antibiotics in the form of ceftriaxone and azithromycin. Currently on IV steroids and breathing treatments as well. Patient is on Coreg and hydrochlorothiazide/lisinopril was added. will gradually tapered down Catapres. Pulmonary and cardiology is following. 2-D echocardiogram was ordered. WBC count 22.3 Active Medications Generic Name Dose Route Start Last Admin Trade Name Freq PRN Reason Stop Dose Admin Acetaminophen 500 mg 04/26/19 17:36 Tylenol Tab PO Q6HR PRN Fever and/ or MILD Pain Hydrocodone Bitart/Acetaminophen 1 each 04/26/19 17:36 [place] 5-325 PO Q6HR PRN MODERATE Pain Albuterol/Ipratropium 3 ml 04/27/19 08:00 04/28/19 19:54 Duoneb 0.5 Mg-3 Mg/3 Ml Soln INHALATION 3 ml RT-TID [facility] Administration Albuterol/Ipratropium 3 ml 04/26/19 21:42 Duoneb 0.5 Mg-3 Mg/3 Ml Soln INHALATION RT-Q2H PRN Shortness Of Breath Or Wheezing Alprazolam 0.25 mg 04/26/19 17:36 Xanax PO TID PRN Anxiety Azithromycin 500 mg 04/27/19 12:00 04/28/19 09:16 Zithromax PO 500 mg DAILY [facility] Administration Budesonide/Formoterol Fumarate 2 puff 04/26/19 20:00 04/28/19 19:54 Symbicort 160-4.5 Mcg Inhaler INHALATION 2 puff RT-BID [facility] Administration Carvedilol 3.125 mg 04/26/19 21:00 04/28/19 21:49 Coreg PO 3.125 mg BID [facility] Administration Clonidine 0.1 mg 04/28/19 21:00 04/28/19 21:51 Catapres PO 0.1 mg BID [facility] Administration Diphenhydramine HCl 50 mg 04/26/19 17:35 Benadryl PO Q48H PRN Cold Symptoms Lisinopril/HCTZ 1 each 04/28/19 09:00 04/28/19 09:29 Zestoretic 10-12.5 PO 1 each DAILY [facility] Administration Hydralazine HCl 10 mg 04/26/19 17:36 04/26/19 18:23 Apresoline IVP 10 mg Q4HR PRN Administration Blood Pressure - High Hydromorphone HCl 0.5 mg 04/26/19 17:36 Dilaudid IVP Q6HR PRN Severe Pain Ceftriaxone Sodium 1 gm/ 50 mls @ 100 mls/hr 04/27/19 09:00 04/28/19 09:29 Sodium Chloride IVPB 100 mls/hr Q24HR [facility] Administration Insulin Aspart 0 unit 04/26/19 21:00 04/28/19 21:17 Novolog SQ Not Given ACHS [facility] Protocol Methylprednisolone Sodium Succinate 40 mg 04/28/19 16:00 04/28/19 23:31 Solu-Medrol IV 40 mg Q8HR [facility] Administration Multivitamins 1 each 04/27/19 12:00 04/28/19 13:13 Theragran PO 1 each DAILY@1200 [facility] Administration Nicotine 1 patch 04/26/19 17:45 04/28/19 09:16 Habitrol 14mg/24hr Patch TRANSDERM 1 patch DAILY [facility] Administration Pantoprazole Sodium 40 mg 04/27/19 07:30 04/28/19 09:16 Protonix PO 40 mg AC-BRKFST [facility] Administration Objective - Vital Signs Vital signs: Vital Signs Temp 98.3 F 04/28/19 14:08 Pulse 85 04/28/19 14:08 Resp 16 04/28/19 14:08 BP 148/74 04/28/19 14:08 Pulse Ox 92 L 04/28/19 14:08 Intake & Output 04/27/19 04/28/19 04/28/19 18:59 06:59 18:59 Intake Total 1740 240 Balance 1740 240 Intake: Intake, IV Titration 50 Amount cefTRIAXone 1 gm In 50 Sodium Chloride 0.9% 50 ml @ 100 mls/hr IVPB Q24HR [facility] Rx#:[id number] Oral 1690 240 Other: Voiding Method Toilet Toilet Toilet # Voids 0 2 - Exam PHYSICAL EXAMINATION: Patient is lying in the bed comfortably, no acute distress, awake alert and oriented.. HEENT: Normocephalic. Neck is supple. Pupils reactive. Nostrils clear. Oral cavity is moist. Ears reveal no drainage. Neck reveals no JVD, carotid bruits, or thyromegaly. CHEST EXAMINATION: Trachea is central. Symmetrical expansion. Bilateral scattered rhonchi and expiratory wheeze minimal. CARDIAC: Normal S1, S2 with no gallops. No murmurs ABDOMEN: Soft. Bowel sounds normal. No organomegaly. No abdominal bruits. Extremities: reveal no edema. No clubbing or cyanosis Neurologically awake, alert, oriented x3 with well-coordinated movements. No focal deficits noted Skin: No rash or skin lesions. Psychiatric: Coperative. Nonsuicidal Musculoskeletal: No joint swelling or deformity. Normal range of motion. - Labs CBC & Chem 7: 04/28/19 09:18 04/28/19 09:18 Labs: Abnormal Lab Results - Last 24 Hours (Table) 04/27/19 04/27/19 04/28/19 Range/Units 16:56 19:57 07:15 WBC (3.8-10.6) k/uL Neutrophils # (1.3-7.7) k/uL Carbon Dioxide (22-30) mmol/L BUN (7-17) mg/dL Glucose (74-99) mg/dL POC Glucose (mg/dL) 222 H 197 H 146 H (75-99) mg/dL 04/28/19 04/28/19 04/28/19 Range/Units 09:18 09:18 11:36 WBC 22.3 H (3.8-10.6) k/uL Neutrophils # 20.9 H (1.3-7.7) k/uL Carbon Dioxide 21 L (22-30) mmol/L BUN 28 H (7-17) mg/dL Glucose 179 H (74-99) mg/dL POC Glucose (mg/dL) 136 H (75-99) mg/dL Assessment and Plan Assessment: Acute COPD exacerbation with tracheobronchitis and possible pneumonia and sepsis. Leukocytosis Elevated proBNP level but no other evidence of CHF. Follow-up 2-D echocardiogram. Ongoing nicotine addiction Hypertensive urgency DVT prophylaxis Plan: Patient will be continued on IV steroids. Continue with antibiotics and breathing treatments. Patient was started on Coreg. Hydrochlorothiazide/lisinopril was added. Patient was given a dose of Norvasc today. We'll gradually tapered off Catapres dose. Patient is currently homeless. custom shop worker will be consulted. Patient otherwise clinically improving. Anticipate discharge next 24 hours with more clinical improvement.. Time with Patient: Greater than 30
[2019-04-29 07:24] LABS: Glucose,Whole Blood 146 mg/dL (75-99)
[2019-04-29] MEDS: SYMBICORT 160-4.5 MCG INHALER INHALATION SCH ×2 (08:41→21:17)
[2019-04-29] MEDS: IPRATROPIUM-ALBUTEROL 3 ML NEB INHALATION SCH ×3 (08:41→21:18)
[2019-04-29] MEDS: INSULIN ASPART (NovoLOG) 100 UNIT/ML VIAL SQ SCH ×4 (08:46→21:32)
[2019-04-29] MEDS: methylPREDNISolone SOD SUCCI 40 MG/ML 1 ML VIAL IV SCH ×2 (08:48→17:41)
[2019-04-29] MEDS: PANTOPRAZOLE 40 MG TABLET PO SCH (08:48)
[2019-04-29] MEDS: NICOTINE 14MG/24HR PATCH TRANSDERM SCH (08:48)
[2019-04-29 08:49] LABS: Glucose,Whole Blood 210 mg/dL (75-99)
[2019-04-29] MEDS: CARVEDILOL 3.125 MG TAB PO SCH ×2 (08:49→21:32)
[2019-04-29] MEDS: AZITHROMYCIN 500 MG TAB PO SCH (08:49)
[2019-04-29] MEDS: LISINOPRIL-HCTZ 10-12.5 MG 1 EACH TAB PO SCH (08:49)
[2019-04-29] MEDS: cloNIDine HCL 0.1 MG TAB PO SCH ×2 (08:50→21:32)
[2019-04-29 09:04] LABS: Basophils % (A) 0 %; Eosinophils # (A) 0.1 k/uL (0-0.7); Eosinophils % (A) 1 %; HGB 13.1 gm/dL (11.4-16.0); Lymphocytes # (A) 0.7 k/uL (1.0-4.8); Lymphocytes % (A) 4 %; MCH 29.6 pg (25.0-35.0); MCHC 31.2 g/dL (31.0-37.0); MCV 94.7 fL (80.0-100.0); Mean Platelet Volume 7.5; Monocytes # (A) 0.3 k/uL (0-1.0); Monocytes % (A) 2 %; Neutrophils # (A) 18.1 k/uL (1.3-7.7); Neutrophils % (A) 94 %; Platelet Count 361 k/uL (150-450); RBC 4.43 m/uL (3.80-5.40); WBC 19.3 k/uL (3.8-10.6)
[2019-04-29 09:26] LABS: Potassium 4.1 mmol/L (3.5-5.1)
[2019-04-29 11:38] LABS: Glucose,Whole Blood 102 mg/dL (75-99)
--- NOTE | 2019-04-29 12:07 | P.PN ---
Subjective Progress Note Date: 04/29/19 This 58-year-old female is admitted mainly with pneumonitis. She is also having problems with blood pressure. Patient was given Norvasc and start on lisinopril, hydrochlorothiazide. She is also on a Catapres still complaining of some shortness of breath. Denies any chest pain. Overall patient seemed to be clinically stable. We'll continue current medical therapy and continue monitoring blood pressures. 04/29/2019: Patient seemed clinically stable. Denies any chest pain, shortness of breath and doesn't appear to be in acute distress. Her white count is a 19,000. Could be related to steroid. Patient's blood pressure is better controlled. If the blood pressure remains stable, Catapres dose could be cut back. She is not having any chest pains. We'll continue current medical therapy. We'll follow the patient as needed Objective - Vital Signs Vital signs: Vital Signs Temp 98 F 04/29/19 06:44 Pulse 72 04/29/19 08:57 Resp 18 04/29/19 06:44 BP 113/84 04/29/19 06:44 Pulse Ox 94 L 04/29/19 06:44 Intake & Output 04/28/19 04/29/19 04/29/19 18:59 06:59 18:59 Intake Total 240 Balance 240 Intake: Oral 240 Other: Voiding Method Toilet Toilet # Voids 2 1 - Exam GENERAL EXAM: Patient is alert and oriented and doesn't appear to be in any acute distress HEENT: Normocephalic. Normal reaction of pupils, equal size, normal range of extraocular motion. No erythema or exudates in the throat. NECK: No masses, no nuchal rigidity. CHEST: No chest wall deformity. LUNGS: Equal air entry with no crackles or wheeze. HEART: S1 and S2 normal with no audible mumurs or gallops. Regular rhythm, femorals equal on both sides.. ABDOMEN: No hepatosplenomegaly, normal bowel sounds, no guarding or rigidity. SKIN: No rashes CENTRAL NERVOUS SYSTEM: No focal deficits. EXTREMITIES: No cyanosis, clubbing or edema. - Labs CBC & Chem 7: 04/29/19 08:33 04/29/19 08:33 Labs: Abnormal Lab Results - Last 24 Hours (Table) 04/28/19 04/28/1904/29/19 Range/Units 16:19 20:08 07:22 WBC (3.8-10.6) k/uL Neutrophils # (1.3-7.7) k/uL Lymphocytes # (1.0-4.8) k/uL BUN (7-17) mg/dL Glucose (74-99) mg/dL POC Glucose (mg/dL) 118 H 128 H 146 H (75-99) mg/dL 04/29/19 04/29/19 04/29/19 Range/Units 08:33 08:33 08:46 WBC 19.3 H (3.8-10.6) k/uL Neutrophils # 18.1 H (1.3-7.7) k/uL Lymphocytes # 0.7 L (1.0-4.8) k/uL BUN 31 H (7-17) mg/dL Glucose 222 H (74-99) mg/dL POC Glucose (mg/dL) 210 H (75-99) mg/dL 04/29/19 Range/Units 11:37 WBC (3.8-10.6) k/uL Neutrophils # (1.3-7.7) k/uL Lymphocytes # (1.0-4.8) k/uL BUN (7-17) mg/dL Glucose (74-99) mg/dL POC Glucose (mg/dL) 102 H (75-99) mg/dL Assessment and Plan (1) HCAP (healthcare-associated pneumonia) Current Visit: Yes Status: Acute Code(s): J18.9 - PNEUMONIA, UNSPECIFIED ORGANISM SNOMED Code(s): 912581550 (2) Hypertension Current Visit: Yes Status: Acute Code(s): I10 - ESSENTIAL (PRIMARY) HYPERTENSION SNOMED Code(s): 80252423 Plan: Patient is clinically stable. Blood pressure seemed to be better controlled this morning. We'll continue current medical therapy and may be dose of the Catapres Back. We'll follow as needed
[2019-04-29] MEDS: MULTIVITAMINS, THERA 1 EACH TAB PO SCH (14:07)
[2019-04-29 16:47] LABS: Glucose,Whole Blood 122 mg/dL (75-99)
[2019-04-29 20:09] LABS: Glucose,Whole Blood 172 mg/dL (75-99)
[2019-04-30] MEDS: methylPREDNISolone SOD SUCCI 40 MG/ML 1 ML VIAL IV SCH (01:14)
[2019-04-30] MEDS: hydrALAZINE HCL 20 MG/ML 1 ML VIAL IVP PRN (01:14)
--- NOTE | 2019-04-30 02:12 | P.PN ---
Subjective Progress Note Date: 04/29/19 Principal diagnosis: Tracheobronchitis and possible pneumonia Hypertensive urgency Patient is a 58-year-old female with a known history of chronic ongoing nicotine addiction, hypertension came to ER with complaints of worsening shortness of breath, congestion and sputum production and fever for the past 2 days prior to admission.. Chest x-ray showed mild right upper lobe scarring. Acute pneumonia is not completely excluded. WBC 17.0. Troponin 3 negative proBNP 2500 on admission. Currently being treated for possible pneumonia and unlikely CHF exacerbation. Blood pressure is uncontrolled with SBP greater than 220 mm hg,. 04/28/2019 Patient says that she feels better today. No complaints of chest pain. No worsening shortness of breath. Still having some expiratory wheezing. No nausea vomiting or abdominal pain. Patient is being continued on antibiotics in the form of ceftriaxone and azithromycin. Currently on IV steroids and breathing treatments as well. Patient is on Coreg and hydrochlorothiazide/lisinopril was added. will gradually tapered down Catapres. Pulmonary and cardiology is following. 2-D echocardiogram was ordered. WBC count 22.3 04/29/2019 Patient's breathing status is better today. Otherwise blood pressure is still elevated in 180s. Continued on Coreg, hydrochlorothiazide/lisinopril and Catapres. Leukocytosis is improving to 19. Steroids will be changed to by mouth. Continued on breathing treatments and follow closely. Anticipate to be discharged in next 24 hours. Active Medications Generic Name Dose Route Start Last Admin Trade Name Freq PRN Reason Stop Dose Admin Acetaminophen 500 mg 04/26/19 17:36 Tylenol Tab PO Q6HR PRN Fever and/ or MILD Pain Hydrocodone Bitart/Acetaminophen 1 each 04/26/19 17:36 [place] 5-325 PO Q6HR PRN MODERATE Pain Albuterol/Ipratropium 3 ml 04/27/19 08:00 04/28/19 19:54 Duoneb 0.5 Mg-3 Mg/3 Ml Soln INHALATION 3 ml RT-TID [facility] Administration Albuterol/Ipratropium 3 ml 04/26/19 21:42 Duoneb 0.5 Mg-3 Mg/3 Ml Soln INHALATION RT-Q2H PRN Shortness Of Breath Or Wheezing Alprazolam 0.25 mg 04/26/19 17:36 Xanax PO TID PRN Anxiety Azithromycin 500 mg 04/27/19 12:00 04/28/19 09:16 Zithromax PO 500 mg DAILY [facility] Administration Budesonide/Formoterol Fumarate 2 puff 04/26/19 20:00 04/28/19 19:54 Symbicort 160-4.5 Mcg Inhaler INHALATION 2 puff RT-BID [facility] Administration Carvedilol 3.125 mg 04/26/19 21:00 04/28/19 21:49 Coreg PO 3.125 mg BID [facility] Administration Clonidine 0.1 mg 04/28/19 21:00 04/28/19 21:51 Catapres PO 0.1 mg BID [facility] Administration Diphenhydramine HCl 50 mg 04/26/19 17:35 Benadryl PO Q48H PRN Cold Symptoms Lisinopril/HCTZ 1 each 04/28/19 09:00 04/28/19 09:29 Zestoretic 10-12.5 PO 1 each DAILY [facility] Administration Hydralazine HCl 10 mg 04/26/19 17:36 04/26/19 18:23 Apresoline IVP 10 mg Q4HR PRN Administration Blood Pressure - High Hydromorphone HCl 0.5 mg 04/26/19 17:36 Dilaudid IVP Q6HR PRN Severe Pain Ceftriaxone Sodium 1 gm/ 50 mls @ 100 mls/hr 04/27/19 09:00 04/28/19 09:29 Sodium Chloride IVPB 100 mls/hr Q24HR [facility] Administration Insulin Aspart 0 unit 04/26/19 21:00 04/28/19 21:17 Novolog SQ Not Given ACHS [facility] Protocol Methylprednisolone Sodium Succinate 40 mg 04/28/19 16:00 04/28/19 23:31 Solu-Medrol IV 40 mg Q8HR [facility] Administration Multivitamins 1 each 04/27/19 12:00 04/28/19 13:13 Theragran PO 1 each DAILY@1200 [facility] Administration Nicotine 1 patch 04/26/19 17:45 04/28/19 09:16 Habitrol 14mg/24hr Patch TRANSDERM 1 patch DAILY [facility] Administration Pantoprazole Sodium 40 mg 04/27/19 07:30 04/28/19 09:16 Protonix PO 40 mg AC-BRKFST [facility] Administration Objective - Vital Signs Vital signs: Vital Signs Temp 97.9 F 04/29/19 20:20 Pulse 70 04/29/19 21:30 Resp 12 04/29/19 20:20 BP 185/90 04/29/19 20:20 Pulse Ox 97 04/29/19 21:18 Intake & Output 04/29/19 04/29/19 04/30/19 06:59 18:59 06:59 Intake Total 240 Balance 240 Intake: Oral 240 Other: Voiding Method Toilet # Voids 1 2 - Exam PHYSICAL EXAMINATION: Patient is lying in the bed comfortably, no acute distress, awake alert and oriented.. HEENT: Normocephalic. Neck is supple. Pupils reactive. Nostrils clear. Oral cavity is moist. Ears reveal no drainage. Neck reveals no JVD, carotid bruits, or thyromegaly. CHEST EXAMINATION: Trachea is central. Symmetrical expansion. Bilateral scattered rhonchi and expiratory wheeze minimal. CARDIAC: Normal S1, S2 with no gallops. No murmurs ABDOMEN: Soft. Bowel sounds normal. No organomegaly. No abdominal bruits. Extremities: reveal no edema. No clubbing or cyanosis Neurologically awake, alert, oriented x3 with well-coordinated movements. No focal deficits noted Skin: No rash or skin lesions. Psychiatric: Coperative. Nonsuicidal Musculoskeletal: No joint swelling or deformity. Normal range of motion. - Labs CBC & Chem 7: 04/29/19 08:33 04/29/19 08:33 Labs: Abnormal Lab Results - Last 24 Hours (Table) 04/29/19 04/29/19 04/29/19 Range/Units 07:22 08:33 08:33 WBC 19.3 H (3.8-10.6) k/uL Neutrophils # 18.1 H (1.3-7.7) k/uL Lymphocytes # 0.7 L (1.0-4.8) k/uL BUN 31 H (7-17) mg/dL Glucose 222 H (74-99) mg/dL POC Glucose (mg/dL) 146 H (75-99) mg/dL 04/29/19 04/29/19 04/29/19 Range/Units 08:46 11:37 16:46 WBC (3.8-10.6) k/uL Neutrophils # (1.3-7.7) k/uL Lymphocytes # (1.0-4.8) k/uL BUN (7-17) mg/dL Glucose (74-99) mg/dL POC Glucose (mg/dL) 210 H 102 H 122 H (75-99) mg/dL 04/29/19 Range/Units 20:07 WBC (3.8-10.6) k/uL Neutrophils # (1.3-7.7) k/uL Lymphocytes # (1.0-4.8) k/uL BUN (7-17) mg/dL Glucose (74-99) mg/dL POC Glucose (mg/dL) 172 H (75-99) mg/dL Assessment and Plan Assessment: Acute COPD exacerbation with tracheobronchitis and possible pneumonia and sepsis. Leukocytosis Elevated proBNP level but no other evidence of CHF. Follow-up 2-D echocardiogram. Ongoing nicotine addiction Hypertensive urgency DVT prophylaxis Plan: Patient will be continued on IV steroids. Continue with antibiotics and breathing treatments. Patient was started on Coreg. Hydrochlorothiazide/lisinopril was added. Patient was given a dose of Norvasc today. We'll gradually tapered off Catapres dose. Patient is currently homeless. paste up worker will be consulted. Patient otherwise clinically improving. Anticipate discharge next 24 hours with more clinical improvement.. Time with Patient: Greater than 30
[2019-04-30 06:42] LABS: Glucose,Whole Blood 115 mg/dL (75-99)
[2019-04-30] MEDS: INSULIN ASPART (NovoLOG) 100 UNIT/ML VIAL SQ SCH (07:01)
[2019-04-30] MEDS: IPRATROPIUM-ALBUTEROL 3 ML NEB INHALATION SCH (07:30)
[2019-04-30 07:31] VITALS: BP 193/100; RESP 16; TEMP 98.1
[2019-04-30] MEDS: SYMBICORT 160-4.5 MCG INHALER INHALATION SCH (07:31)
[2019-04-30 07:35] VITALS: PULSE 76
[2019-04-30] MEDS: cloNIDine HCL 0.1 MG TAB PO SCH (07:53)
[2019-04-30] MEDS: MULTIVITAMINS, THERA 1 EACH TAB PO SCH (07:53)
[2019-04-30] MEDS: PANTOPRAZOLE 40 MG TABLET PO SCH (07:53)
[2019-04-30] MEDS: CARVEDILOL 3.125 MG TAB PO SCH (07:53)
[2019-04-30] MEDS: LISINOPRIL-HCTZ 10-12.5 MG 1 EACH TAB PO SCH (07:53)
[2019-04-30] MEDS: AZITHROMYCIN 500 MG TAB PO SCH (07:53)
[2019-04-30] MEDS: NICOTINE 14MG/24HR PATCH TRANSDERM SCH (07:54)
[2019-04-30 08:20] LABS: Basophils % (A) 0 %; Eosinophils % (A) 0 %; HCT 43.4 % (34.0-46.0); HGB 13.9 gm/dL (11.4-16.0); Lymphocytes # (A) 0.8 k/uL (1.0-4.8); Lymphocytes % (A) 6 %; MCH 29.7 pg (25.0-35.0); MCHC 32.1 g/dL (31.0-37.0); MCV 92.4 fL (80.0-100.0); Mean Platelet Volume 7.8; Monocytes # (A) 0.3 k/uL (0-1.0); Monocytes % (A) 2 %; Neutrophils # (A) 12.9 k/uL (1.3-7.7); Neutrophils % (A) 92 %; Platelet Count 395 k/uL (150-450); RDW 13.5 % (11.5-15.5); WBC 14.1 k/uL (3.8-10.6)
[2019-04-30 08:32] LABS: Calcium 9.1 mg/dL (8.4-10.2); Potassium 4.5 mmol/L (3.5-5.1)
[2019-04-30] MEDS ORDERED: predniSONE 20 MG TAB PO SCH (09:00)
== END 2019-04-30 10:13 | disposition home or self-care (01) | DRG 871 ==
LOC: EC 14:31 → 4SSUR 17:43
PROVIDERS: ADMIT Hospitalist; ATTEND Hospitalist
DX: A41.9 Sepsis, unspecified organism (principal); J18.0 Bronchopneumonia, unspecified organism; J44.0 Chronic obstructive pulmonary disease with (acute) lower respiratory infection; J44.1 Chronic obstructive pulmonary disease with (acute) exacerbation; I11.9 Hypertensive heart disease without heart failure; Y95 Nosocomial condition; I16.0 Hypertensive urgency; J20.9 Acute bronchitis, unspecified; F41.9 Anxiety disorder, unspecified; R09.02 Hypoxemia; F17.210 Nicotine dependence, cigarettes, uncomplicated; Z71.6 Tobacco abuse counseling; Z79.899 Other long term (current) drug therapy; Z59.0 Homelessness; Z87.01 Personal history of pneumonia (recurrent)
CPT/HCPCS: 36415; 71046; 80048; 81001; 82803; 83605; 83880; 84484; 85025; 93005; 94640; 94760; 96361; 96365; 96375; 99284